=== PATIENT | female | born 1950 | race Caucasian/White ===

== ENCOUNTER 2022-12-29 13:04 | Outpatient (CLI) | payer BC, SELFPAY ==
--- NOTE | 2022-12-29 08:35 | W.ANESCHARGE ---
Anesthesia Charges Start Date/Time Anesthesia Start Date: 12/29/22 Anesthesia Start Time: 14:05 Stop Date/Time Anesthesia Stop Date: 12/29/22 Anesthesia Stop Time: 14:30 Summary Extremes of Age - Over 70 or under 1: MDA
--- NOTE | 2022-12-29 14:31 | P.ANES_ITS ---
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
== END 2022-12-29 13:05 | disposition home or self-care (01) ==
LOC: OP CLINIC 13:05
PROVIDERS: PCP Family Medicine; Visit Provider Internal Medicine Gastroenterology
DX: Z12.11 Encounter for screening for malignant neoplasm of colon (principal); Z83.71 Family history of colonic polyps
CPT/HCPCS: 45378; 811; 812; 99100; J2704